=== PATIENT | female | born 1955 ===

== ENCOUNTER → 2019-02-11 | Outpatient (REF) | payer BC | LOC: M LAB LCGH 09:17 | PROVIDERS: ATTEND Physician Assistant | DX: D23.9 Other benign neoplasm of skin, unspecified (principal) ==

== ENCOUNTER → 2023-02-15 | Outpatient (REF) | payer MEDICARE, BC | LOC: M SFHCDERM 14:51 | PROVIDERS: ATTEND Physician Assistant | DX: D49.2 Neoplasm of unspecified behavior of bone, soft tissue, and skin (principal) ==